=== PATIENT | female | born 1995 | race Caucasian/White ===

== ENCOUNTER 2022-10-19 20:33 | Emergency (ER) | payer BC, SELFPAY ==
[2022-10-19 20:37] VITALS: BP 123/80; PULSE 106; RESP 16; O2SAT 98; BMI 33.6
[2022-10-19] MEDS: Lidocaine HCl 1 % MPF 30 ML VIAL SUBCUT (23:46)
--- NOTE | 2022-10-19 23:49 | PC.NURSE ---
Patient was given Zofran PO by Sonia BURT, however, Sissy vomited the medication very shortly after administration. Given Lidocaine 1% HCL MPF into right hand/laceration for suturing by Dr. Voss. Pt is gagging and dry heaving, reports nausea, lightheadedness, and anxiety when seeing blood. Patient and her family member at the bedside both confirm that Sissy does not tolerate the sight of blood well in the past. Patient is laying in bed, dry heaving into emesis bag. Report given to Sissy BURT. also currently at bedside for suturing procedure.
[2022-10-20] MEDS: Ondansetron ODT 4 MG TAB.RAPDIS TRANSLINGU (00:04)
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
== END 2022-10-20 00:24 | disposition home or self-care (01) ==
PROVIDERS: Emergency Provider Emergency Medicine
DX: S61.212A Laceration without foreign body of right middle finger without damage to nail, initial encounter (principal); W25.XXXA Contact with sharp glass, initial encounter; Y93.9 Activity, unspecified; Y92.019 Unspecified place in single-family (private) house as the place of occurrence of the external cause; Y99.9 Unspecified external cause status
CPT/HCPCS: 12001; 99282; 99284

== ENCOUNTER 2022-10-29 11:17 | Emergency (ER) | payer BC, SELFPAY ==
[2022-10-29 11:23] VITALS: BP 117/81; PULSE 76; RESP 17; TEMP 36.6; O2SAT 98; BMI 33.7
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
== END 2022-10-29 12:30 | disposition home or self-care (01) ==
PROVIDERS: Emergency Provider Emergency Medicine
DX: Z48.02 Encounter for removal of sutures (principal)
CPT/HCPCS: 99282